=== PATIENT | female | born 1975 | race Caucasian/White ===

== ENCOUNTER 2020-09-24 08:16 | Emergency (ER) | payer MEDICAID ==
[~2020-09-24] VITALS: Ht 160 cm; Wt 121.1 kg
[2020-09-24 08:22] VITALS: BP 133/78
--- NOTE | 2020-09-24 08:22 | NUR ---
PT SENT TO LOBBY TO WAIT FOR AVAILABLE BED.
--- NOTE | 2020-09-24 09:30 | NUR ---
45/F BIB SELF C/O SOB X THIS AM. O2 SAT 97% RA.PT STATES HAS HX OF ASTHMA AND HAS NOT HAD MEDICATIONS. PT STATES SHE RAN OUT. HX ASTHMA, ECZEMA
--- NOTE | 2020-09-24 09:39 | NUR ---
COVID SWAB DONE, SENT TO LAB.
[2020-09-24 09:40] VITALS: BP 133/78
--- NOTE | 2020-09-24 09:40 | NUR ---
Patient discharged with v/s stable. Written and verbal after care instructions given and explained. Patient alert, oriented and verbalized understanding of instructions. Ambulatory with steady gait. All questions addressed prior to discharge. ID band removed. Patient advised to follow up with PMD. Rx of SYNALAR, ALBUTEROL& PREDNISONE given. Patient educated on indication of medication including possible reaction and side effects. Opportunity to ask questions provided and answered.
== END 2020-09-24 09:40 | disposition home or self-care (01) ==
LOC: MED 08:16
DX: J45.909 Unspecified asthma, uncomplicated (principal); L30.9 Dermatitis, unspecified; Z98.51 Tubal ligation status; Z20.828 Contact with and (suspected) exposure to other viral communicable diseases
CPT/HCPCS: 99283; U0003

== ENCOUNTER 2021-05-08 20:09 | Emergency (ER) | payer MEDICAID ==
[~2021-05-08] VITALS: Ht 160 cm; Wt 116.6 kg
[2021-05-08 20:28] VITALS: BP 120/84
--- NOTE | 2021-05-08 20:33 | NUR ---
visual acuity as follows; OD: 20/30 OS: 20/20 OU:20/20
--- NOTE | 2021-05-08 20:33 | NUR ---
triaged and waiting in lobby.
--- NOTE | 2021-05-08 21:27 | NUR ---
AMBULATED TO ER BED 9
[2021-05-08] MEDS ORDERED: TETRACAINE HCL/PF 0.5% OPTH 4 ML BTL OP ONE (21:35)
[2021-05-08] MEDS ORDERED: TOBR5SOL17 RIGHT EYE (21:38)
[2021-05-08] MEDS ORDERED: NAPH15SO OP (21:38)
[2021-05-08] MEDS ORDERED: ALBU0.0912 INH (21:45)
--- NOTE | 2021-05-08 21:50 | NUR ---
R eye pain/discharge/ blurred vision for 4 days. mild swelling noted upon assessment. hx of asthma nkda
--- NOTE | 2021-05-08 21:55 | NUR ---
Patient discharged with v/s stable. Written and verbal after care instructions given and explained. Patient alert, oriented and verbalized understanding of instructions. Ambulatory with steady gait. All questions addressed prior to discharge. ID band removed. Patient advised to follow up with PMD. Rx of naphcon-a, tobramycin eyedrops given. Patient educated on indication of medication including possible reaction and side effects. Opportunity to ask questions provided and answered.
[2021-05-08 21:56] VITALS: BP 120/84
== END 2021-05-08 21:55 | disposition home or self-care (01) ==
LOC: MED 20:09
DX: H00.011 Hordeolum externum right upper eyelid (principal); J45.909 Unspecified asthma, uncomplicated; Z79.899 Other long term (current) drug therapy
CPT/HCPCS: 99283

== ENCOUNTER 2022-05-22 15:58 | Emergency (ER) | payer MEDICAID ==
[~2022-05-22] VITALS: Ht 160 cm; Wt 99.8 kg
[~2022-05-22 15:58] MED LIST: ALBU0.0912 INH; NAPH15SO OP; TOBR5SOL17 RIGHT EYE
[2022-05-22 16:13] VITALS: BP 143/88
--- NOTE | 2022-05-22 16:45 | NUR ---
SELENA ORTA EXAMINING PT IN TRIAGE WITH FEMALE ELECTRICAL MAINTENANCE TECHNICIAN
[2022-05-22] MEDS ORDERED: IBUP-1842 PO (16:50)
[2022-05-22] MEDS ORDERED: CEPH-588 PO (16:50)
[2022-05-22] MEDS ORDERED: ALBU0.0912 INH (16:59)
--- NOTE | 2022-05-22 17:00 | NUR ---
46 Y/O FEMALE BIB SELF C/O OF PAIN AND , BURNING, ITCHING ON HER LABIA, PER PT SHE HAS A BUMP IN THE AREA, X3DAYS. TOOK MOTRIN FOR PAIN AND SWELLING. DENIES ANY VAGINAL BLEEDING OR DISCHARGE. DENIES ANY URINARY S/S NKA PMH: ASTHMA
[2022-05-22 17:11] VITALS: BP 143/88
--- NOTE | 2022-05-22 17:12 | NUR ---
Patient discharged with v/s stable. Written and verbal after care instructions given and explained. Patient alert, oriented and verbalized understanding of instructions. Ambulatory with steady gait. All questions addressed prior to discharge. ID band removed. Patient advised to follow up with PMD. Rx of albuterol, ibuprofen, cephalexin (sent) given. Patient educated on indication of medication including possible reaction and side effects. Opportunity to ask questions provided and answered.
== END 2022-05-22 17:12 | disposition home or self-care (01) ==
LOC: MED 15:58
DX: N76.4 Abscess of vulva (principal); J45.909 Unspecified asthma, uncomplicated; Z76.0 Encounter for issue of repeat prescription
CPT/HCPCS: 99283

== ENCOUNTER 2022-05-25 12:28 | Emergency (ER) | payer MEDICAID ==
[~2022-05-25] VITALS: Ht 162.6 cm; Wt 102.5 kg
[~2022-05-25 12:28] MED LIST changes: +CEPH-588 PO; +IBUP-1842 PO
[2022-05-25 12:46] VITALS: BP 174/94
--- NOTE | 2022-05-25 12:53 | NUR ---
PT AMB TO BED 2.
--- NOTE | 2022-05-25 12:54 | NUR ---
BIB SELF FOR RECHECK. SEEN HERE 05/22/22 FOR LEFT VULVAR ABSCESS. PMH: ASTHMA, TUBALIGATION
[2022-05-25] MEDS ORDERED: LIDOCAINE MPF 1% 10 MG/ML VIAL INJ ONE (13:35)
[2022-05-25] MEDS ORDERED: KETOROLAC 30 MG/ML VIAL IM ONE (13:35)
[2022-05-25 14:57] VITALS: BP 132/86
--- NOTE | 2022-05-25 14:57 | NUR ---
Patient discharged with v/s stable. Written and verbal after care instructions given and explained. Patient verbalized understanding. Ambulatory with steady gait. All questions addressed prior to discharge. Advised to follow up with PMD.
[2022-05-26] MEDS ORDERED: SULF-59 PO (13:33)
== END 2022-05-25 14:57 | disposition home or self-care (01) ==
LOC: MED 12:28
DX: N76.4 Abscess of vulva (principal); J45.909 Unspecified asthma, uncomplicated
CPT/HCPCS: 56405; 96372; 99284; J1885; J2001

== ENCOUNTER 2022-05-26 12:14 | Emergency (ER) | payer MEDICAID ==
[~2022-05-26] VITALS: Ht 160 cm; Wt 104.3 kg
[2022-05-26 12:23] VITALS: BP 131/88
--- NOTE | 2022-05-26 13:08 | NUR ---
AMBULATED TO BED 1
[2022-05-26] MEDS ORDERED: SULFAMETH/TRIMETH DS 800/160MG 1 TAB PO ONE (13:25)
[2022-05-26] MEDS ORDERED: KETOROLAC 30 MG/ML VIAL IM ONE (13:25)
[2022-05-26] MEDS ORDERED: SULF-59 PO (13:33)
--- NOTE | 2022-05-26 13:56 | NUR ---
Patient discharged with v/s stable. Written and verbal after care instructions given and explained. Patient alert, oriented and verbalized understanding of instructions. Ambulatory with steady gait. All questions addressed prior to discharge. ID band removed. Patient advised to follow up with PMD. Rx of bactrim ds given. Patient educated on indication of medication including possible reaction and side effects. Opportunity to ask questions provided and answered.
== END 2022-05-26 13:56 | disposition home or self-care (01) ==
LOC: MED 12:14
DX: N76.4 Abscess of vulva (principal); J45.909 Unspecified asthma, uncomplicated; Z79.899 Other long term (current) drug therapy
CPT/HCPCS: 96372; 99283; J1885

== ENCOUNTER 2022-07-01 18:15 | Emergency (ER) | payer MEDICAID ==
[~2022-07-01] VITALS: Ht 162.6 cm; Wt 98.7 kg
[~2022-07-01 18:15] MED LIST changes: +SULF-59 PO
[2022-07-01 18:39] VITALS: BP 145/73
--- NOTE | 2022-07-01 18:48 | NUR ---
PT AMB TO BED 9.
[2022-07-01] MEDS ORDERED: IBUPROFEN 800 MG TAB PO ONE (19:00)
--- NOTE | 2022-07-01 19:00 | NUR ---
ANICETO AT BEDSIDE
[2022-07-01] MEDS ORDERED: ALBU0.0912 INH (19:06)
[2022-07-01] MEDS ORDERED: SULF-58 PO (19:06)
--- NOTE | 2022-07-01 19:30 | NUR ---
PT WALKED IN C/O MULTIPLE COMPLAINTS, LLQ ABDOMINAL WALL ABCESS X 5 DAYS AND FLU LIKE SYMPTOMS. PT DENIES FEVERS, CHILLS, N/V/D/C. DENIES DRUG USE.
--- NOTE | 2022-07-01 20:04 | NUR ---
SOELISABETHA SWAB SENT TO LAB
[2022-07-01 20:21] VITALS: BP 145/73
== END 2022-07-01 20:20 | disposition home or self-care (01) ==
LOC: MED 18:15
DX: L03.311 Cellulitis of abdominal wall (principal); Z20.822 Contact with and (suspected) exposure to COVID-19; J06.9 Acute upper respiratory infection, unspecified; R03.0 Elevated blood-pressure reading, without diagnosis of hypertension; Z76.0 Encounter for issue of repeat prescription
CPT/HCPCS: 99283

== ENCOUNTER 2022-07-03 13:16 | Emergency (ER) | payer MEDICAID ==
[~2022-07-03] VITALS: Ht 167.6 cm; Wt 84.4 kg
[~2022-07-03 13:16] MED LIST changes: +SULF-58 PO
[2022-07-03 13:22] VITALS: BP 146/83
--- NOTE | 2022-07-03 13:30 | NUR ---
47 y/o female bib self from home, pt was seen here previously for left lower quadrant abd wound on 07/01/22, pt states prior to visit area has been hurting for 5 days. pt now presents to ed with c/o increased pain and states this morning area "popped". site appears to have redness, swelling and some discharge at the site. a&ox4, ambulates with steady gait. pain 10/10 at this time. pmh: asthma nka
[2022-07-03] MEDS ORDERED: KETOROLAC 30 MG/ML VIAL IM ONE (14:05)
[2022-07-03] MEDS ORDERED: cephALEXin 500 MG CAP PO ONE (14:05)
[2022-07-03] MEDS ORDERED: HYDROcodone/APAP 5/325 MG 1 TAB TAB PO ONE (14:05)
[2022-07-03] MEDS ORDERED: BACITRACIN OINT 500 UNITS/GM PKT TP ONE (14:10)
--- NOTE | 2022-07-03 14:15 | NUR ---
PT AMB TO BED 2.
--- NOTE | 2022-07-03 14:36 | NUR ---
PT MOVED TO ROOM 2. AMBULATED W/STEADY GAIT
[2022-07-03] MEDS ORDERED: IBUP-2213 PO (14:41)
[2022-07-03] MEDS ORDERED: CEPH-588 PO (14:41)
[2022-07-03] MEDS ORDERED: ACET-8386 PO (14:41)
--- NOTE | 2022-07-03 15:08 | NUR ---
NON ADHERENT APPLIED TO LOWER ABDOMEN.
[2022-07-03 15:34] VITALS: BP 134/80
--- NOTE | 2022-07-03 15:35 | NUR ---
Patient discharged with v/s stable. Written and verbal after care instructions given and explained. Patient alert, oriented and verbalized understanding of instructions. Ambulatory with steady gait. All questions addressed prior to discharge. ID band removed. Patient advised to follow up with PMD. Rx of MOTRIN, NORCO, KEFLEX given. Patient educated on indication of medication including possible reaction and side effects. Opportunity to ask questions provided and answered.
--- NOTE | 2022-07-03 15:35 | NUR ---
The patient's care was reviewed and supervised by ED Agency Nurse 9, RN, RN.
== END 2022-07-03 15:34 | disposition home or self-care (01) ==
LOC: MED 13:16
DX: L03.311 Cellulitis of abdominal wall (principal); J45.909 Unspecified asthma, uncomplicated; Z79.899 Other long term (current) drug therapy
CPT/HCPCS: 81025; 96372; 99284; J1885

== ENCOUNTER 2022-07-09 08:00 | Emergency (ER) | payer MEDICAID ==
[~2022-07-09 08:00] MED LIST changes: +ACET-8386 PO; +IBUP-2213 PO
--- NOTE | 2022-07-09 08:05 | NUR ---
pt lwbs at this time
--- NOTE | 2022-07-09 08:05 | NUR ---
PT STATES SHE NEEDED TO LEAVE AND WOULD COME BACK LATER TO BE SEEN.
== END 2022-07-09 08:05 | disposition left against medical advice (07) ==
LOC: MED 08:00
DX: T14.8XXA Other injury of unspecified body region, initial encounter (principal); Z53.21 Procedure and treatment not carried out due to patient leaving prior to being seen by health care provider; W57.XXXA Bitten or stung by nonvenomous insect and other nonvenomous arthropods, initial encounter; Y93.89 Activity, other specified; Y92.89 Other specified places as the place of occurrence of the external cause; Y99.8 Other external cause status

== ENCOUNTER 2022-08-23 15:41 | Emergency (ER) | payer MEDICAID ==
[~2022-08-23] VITALS: Ht 162.6 cm; Wt 103.9 kg
[2022-08-23 15:47] VITALS: BP 127/80
[2022-08-23] MEDS ORDERED: KETOROLAC 60 MG/2 ML VIAL IM ONE (16:25)
[2022-08-23] MEDS ORDERED: IBUP-2213 PO (16:30)
[2022-08-23] MEDS ORDERED: PRED20TA5 PO (16:30)
[2022-08-23 17:03] VITALS: BP 132/75
--- NOTE | 2022-08-23 17:06 | NUR ---
Patient discharged with v/s stable. Written and verbal after care instructions given and explained. Patient alert, oriented and verbalized understanding of instructions. Ambulatory with . All questions addressed prior to discharge. ID band removed. Patient advised to follow up with PMD. Rx of MOTRIN, PREDNISON given. Patient educated on indication of medication including possible reaction and side effects. Opportunity to ask questions provided and answered.
== END 2022-08-23 17:03 | disposition home or self-care (01) ==
LOC: MED 15:41
DX: J02.9 Acute pharyngitis, unspecified (principal); J45.909 Unspecified asthma, uncomplicated
CPT/HCPCS: 96372; 99283; J1885

== ENCOUNTER 2022-09-03 08:45 | Emergency (ER) | payer MEDICAID ==
[~2022-09-03] VITALS: Ht 172.7 cm; Wt 83.9 kg
[~2022-09-03 08:45] MED LIST changes: +PRED20TA5 PO
[2022-09-03 08:54] VITALS: BP 150/86
--- NOTE | 2022-09-03 09:46 | NUR ---
PATIENT AMBULATED TO BED 5.
--- NOTE | 2022-09-03 10:03 | NUR ---
47 y/o female bib self with c/o sore throat with SOB and cough x 1 week. Per patient was seen here 1 week ago and was informed she had a viral infection. Patient denies any fevers or chills. Patient has been using her inhaler to treat symptoms. Patient says there are sick people in her household. Patient has a hoarse voice. Current oxygen level at 97% on room air. Medical History: Asthma NKDA
--- NOTE | 2022-09-03 10:59 | NUR ---
Dr. Chapin evaluating patient at bedside.
[2022-09-03] MEDS ORDERED: ALBUTEROL HFA MDI 90 MCG/ACTUATION 8 GM INH ONE (11:05)
[2022-09-03] MEDS ORDERED: ALBU0.0912 IH (11:07)
[2022-09-03] MEDS ORDERED: PROM118S5 PO (11:07)
--- NOTE | 2022-09-03 11:57 | NUR ---
RT AT BEDSIDE
[2022-09-03 12:13] VITALS: BP 137/82
--- NOTE | 2022-09-03 12:13 | NUR ---
Patient discharged with v/s stable. Written and verbal after care instructions given. Patient alert, oriented and verbalized understanding of instructions. Ambulatory with steady gait. All questions addressed prior to discharge. ID band removed. Patient advised to follow up with PMD. Rx of Proventil and Promethazine-DM given. Opportunity to ask questions provided and answered.
--- NOTE | 2022-09-03 14:08 | NUR ---
The patient's care was reviewed and supervised by ED Agency Nurse 8, RN, RN.
--- NOTE | 2022-09-03 14:10 | NUR ---
The patient's care was reviewed and supervised by ED Agency Nurse 8, RN, RN.
== END 2022-09-03 12:13 | disposition home or self-care (01) ==
LOC: MED 08:45
DX: J45.909 Unspecified asthma, uncomplicated (principal); B34.9 Viral infection, unspecified; J04.0 Acute laryngitis
CPT/HCPCS: 94664; 99283; J3535

== ENCOUNTER 2022-09-21 10:01 | Emergency (ER) | payer MEDICAID ==
[~2022-09-21] VITALS: Ht 162.6 cm; Wt 107.0 kg
[~2022-09-21 10:01] MED LIST changes: +ALBU0.0912 IH; +PROM118S5 PO
[2022-09-21 10:05] VITALS: BP 127/81
--- NOTE | 2022-09-21 10:20 | NUR ---
Note undone in EDM - 09/21/22 at 1046 by MEDPMR PATIENT PRESENTS TO ED WITH EAR PAIN . PT STATES SHE "HAS BEEN FEELING PAIN IN HER INNER EAR AND WHEN MOUTH IS OPEN CANNOT HEAR" . DENIES N/V/ DIARRHEA PRESENT; SKIN IS PINK/WARM/DRY; AAOX4 WITH EVEN AND STEADY GAIT; LUNGS CLEAR BL; HR EVEN AND REGULAR; PT DENIES ANY FEVER, CP, AT THIS TIME, SOB AND COUGH PRESENT; PATIENT STATES PAIN OF 8/10 AT THIS TIME IN HER EAR, WHEN TALKING AND YAWNING, HIGH PRESSURE PAIN FOR 2 DAYS.; VSS; PATIENT POSITIONED FOR COMFORT; HOB ELEVATED; BEDRAILS UP X2; BED DOWN. ER MD MADE AWARE OF PT STATUS. H/S: ASTHMA, LARYNGITIS , ECZEMA, MEDS: ALBUTEROL INHALER ALLERGIES: NKDA NOTED BY ZOYA STUDENT NURSE
--- NOTE | 2022-09-21 10:20 | NUR ---
PATIENT PRESENTS TO ED WITH RIGHT EAR PAIN . PT STATES SHE "HAS BEEN FEELING PAIN IN HER INNER EAR AND WHEN MOUTH IS OPEN CANNOT HEAR" . DENIES N/V/ DIARRHEA PRESENT; SKIN IS PINK/WARM/DRY; AAOX4 WITH EVEN AND STEADY GAIT; LUNGS CLEAR BL; HR EVEN AND REGULAR; PT DENIES ANY FEVER, CP, AT THIS TIME, SOB AND COUGH PRESENT; PATIENT STATES PAIN OF 8/10 AT THIS TIME IN HER EAR, WHEN TALKING AND YAWNING, HIGH PRESSURE PAIN FOR 2 DAYS.; VSS; PATIENT POSITIONED FOR COMFORT; HOB ELEVATED; BEDRAILS UP X2; BED DOWN. ER MD MADE AWARE OF PT STATUS. H/S: ASTHMA, LARYNGITIS , ECZEMA, MEDS: ALBUTEROL INHALER ALLERGIES: NKDA
--- NOTE | 2022-09-21 10:36 | NUR ---
flu and franco swabbed at this time
[2022-09-21] MEDS ORDERED: NAPR-1704 PO (10:48)
[2022-09-21] MEDS ORDERED: CEPH-588 PO (10:48)
[2022-09-21 10:53] VITALS: BP 127/81
--- NOTE | 2022-09-21 10:53 | NUR ---
Patient discharged with v/s stable. Written and verbal after care instructions given and explained. Patient alert, oriented and verbalized understanding of instructions. Ambulatory with steady gait. All questions addressed prior to discharge. ID band removed. Patient advised to follow up with PMD. Rx of cephalexin, naproxen (sent) given. Patient educated on indication of medication including possible reaction and side effects. Opportunity to ask questions provided and answered.
== END 2022-09-21 10:53 | disposition home or self-care (01) ==
LOC: MED 10:01
DX: B34.9 Viral infection, unspecified (principal); H92.01 Otalgia, right ear; N76.2 Acute vulvitis; L03.116 Cellulitis of left lower limb; Z20.822 Contact with and (suspected) exposure to COVID-19; J45.909 Unspecified asthma, uncomplicated; Z98.890 Other specified postprocedural states; Z79.2 Long term (current) use of antibiotics; Z79.1 Long term (current) use of non-steroidal anti-inflammatories (NSAID); Z79.899 Other long term (current) drug therapy; Z79.891 Long term (current) use of opiate analgesic
CPT/HCPCS: 99283

== ENCOUNTER 2022-10-22 12:02 | Emergency (ER) | payer MEDICAID ==
[~2022-10-22] VITALS: Ht 160 cm; Wt 108.9 kg
[~2022-10-22 12:02] MED LIST changes: -ACET-8386 PO; +ACET-8905 PO; +NAPR-1704 PO
[2022-10-22 12:17] VITALS: BP 135/89
--- NOTE | 2022-10-22 12:30 | NUR ---
47 Y/O FEMALE BBIB SELF C/O LEFT HIP REDNESS AND SWELLING PT BELIEVES SHE HAS AN ABSCESS OR AN INGROWN HAIR. DENIES ANY RADIATION, DISCHARGE. TERRY PMH: ASTHMA
[2022-10-22] MEDS ORDERED: CEPH-588 PO (13:22)
[2022-10-22] MEDS ORDERED: ACET-2214 PO (13:22)
[2022-10-22] MEDS ORDERED: ALBU0.0912 IH (13:22)
--- NOTE | 2022-10-22 13:46 | NUR ---
Patient discharged with v/s stable. Written and verbal after care instructions ABOUT ASTHMA AND CELLULITIS given and explained. Patient alert, oriented and verbalized understanding of instructions. Ambulatory with steady gait. All questions addressed prior to discharge. ID band removed. Patient advised to follow up with PMD. Rx of TYLENOL, ALBUEROL AND KEFLEX given. Patient educated on indication of medication including possible reaction and side effects. Opportunity to ask questions provided and answered.
== END 2022-10-22 13:46 | disposition home or self-care (01) ==
LOC: MED 12:02
DX: L03.311 Cellulitis of abdominal wall (principal); J45.909 Unspecified asthma, uncomplicated; Z76.0 Encounter for issue of repeat prescription; Z79.899 Other long term (current) drug therapy
CPT/HCPCS: 99283

== ENCOUNTER 2022-12-02 15:33 | Emergency (ER) | payer MEDICAID ==
[~2022-12-02] VITALS: Ht 165.1 cm; Wt 114.8 kg
[~2022-12-02 15:33] MED LIST changes: +ACET-2214 PO
[2022-12-02 15:39] VITALS: BP 137/72
--- NOTE | 2022-12-02 16:00 | NUR ---
47/F WALKED IN C/O SORE THROAT AND B/L EAR PAIN ONSET 3 DAYS. DENIES FEVER. AAO4, AMBULATORY, VITALS STABLE. PMH: ASTHMA, ECZEMA NKA MED: DENIES
[2022-12-02] MEDS ORDERED: IBUPROFEN 600 MG TAB PO ONE (16:30)
[2022-12-02] MEDS ORDERED: IBUP-2213 PO (16:31)
[2022-12-02] MEDS ORDERED: AMOX500C25 PO (16:31)
== END 2022-12-02 17:00 | disposition home or self-care (01) ==
LOC: MED 15:33
DX: J04.0 Acute laryngitis (principal); H66.93 Otitis media, unspecified, bilateral; J45.909 Unspecified asthma, uncomplicated
CPT/HCPCS: 99283

== ENCOUNTER 2023-01-21 09:49 | Emergency (ER) | payer MEDICAID ==
[~2023-01-21] VITALS: Ht 167.6 cm; Wt 108.9 kg
[~2023-01-21 09:49] MED LIST changes: +AMOX500C25 PO
[2023-01-21 10:17] VITALS: BP 144/83
--- NOTE | 2023-01-21 10:29 | NUR ---
SELENA MORELAND AT BEDSIDE.
--- NOTE | 2023-01-21 10:34 | NUR ---
47 Y/O F BIB SELF PT C/O COUGH SOB AND SORE THROAT 10/10 ON AND OFF FOR MONTHS. PMH: ASTHMA
--- NOTE | 2023-01-21 10:56 | NUR ---
BRANDON AND INFLUENZA SWABED AND WALKED TO THE LAB.
[2023-01-21 10:57] LABS: BASOPHILS # (AUTO) 0.1 K/uL (0.00-0.22); BASOPHILS % (AUTO) 1.3 % (0.0-2.0); EOSINOPHILS # (AUTO) 0.1 K/uL (0-0.4); EOSINOPHILS % (AUTO) 2.1 % (0.0-4.0); HEMOGLOBIN 11.9 g/dL (12.0-16.0); LYMPHOCYTES # (AUTO) 1.5 K/uL (2.5-16.5); LYMPHOCYTES % (AUTO) 25.8 % (20.5-51.1); MEAN CORPUSCULAR HEMOGLOBIN 25 pg (27-31); MEAN CORPUSCULAR HGB CONC 32 g/dL (33-37); MEAN CORPUSCULAR VOLUME 78.6 fL (80-94); MONOCYTES # (AUTO) 0.6 K/uL (0.8-1.0); MONOCYTES % (AUTO) 10.3 % (1.7-9.3); NEUTROPHILS # (AUTO) 3.6 K/uL (1.8-7.7); NEUTROPHILS % (AUTO) 60.5 % (42.2-75.2); PLATELET COUNT (AUTO) 247 K/uL (140-450); RED CELL DISTRIBUTION WIDTH 17.2 % (11.6-13.7)
--- NOTE | 2023-01-21 11:15 | NUR ---
PT TO X-RAY VIA WHEELCHAIR.
[2023-01-21 11:25] LABS: ALBUMIN 3.5 g/dL (3.4-5.0); ANION GAP 13.6 (8-16); ASPARTATE AMINOTRANSFERASE 20 U/L (15-37); CARBON DIOXIDE 26.5 mmol/L (21-32); CHLORIDE 104 mmol/L (98-107); CREATININE 0.7 mg/dL (0.6-1.3); GFR ARICAN-AMERICAN 116 mL/min (>90); GLUCOSE 129 mg/dL (74-106); POTASSIUM 4.1 mmol/L (3.5-5.1); SODIUM SERUM 140 mmol/L (136-145); TOTAL BILIRUBIN 0.3 mg/dL (0.0-1.0); UREA NITROGEN, BLOOD 12 mg/dL (7-18)
--- NOTE | 2023-01-21 11:40 | NUR ---
PT TO CT VIA WHEELCHAIR.
[2023-01-21] MEDS ORDERED: ALBU0.0912 INH (14:35)
[2023-01-21] MEDS ORDERED: PRED20TA5 PO (14:36)
--- NOTE | 2023-01-21 14:43 | NUR ---
SELENA MORELAND AT BEDSIDE.
[2023-01-21 14:59] VITALS: BP 111/57
--- NOTE | 2023-01-21 15:01 | NUR ---
The patient's care was reviewed and supervised by Fly Goddard RN.
--- NOTE | 2023-01-21 15:01 | NUR ---
Patient discharged with v/s stable. Written and verbal after care instructions given and explained. Patient alert, oriented and verbalized understanding of instructions. Ambulatory with steady gait. All questions addressed prior to discharge. ID band removed. Patient advised to follow up with PMD. Rx of ALBUTEROL SULFATE, PREDNISONE given. Opportunity to ask questions provided and answered.
== END 2023-01-21 15:01 | disposition home or self-care (01) ==
LOC: MED 09:49
DX: R06.02 Shortness of breath (principal); R05.9 Cough, unspecified; J02.9 Acute pharyngitis, unspecified; R49.0 Dysphonia; R03.0 Elevated blood-pressure reading, without diagnosis of hypertension; G89.29 Other chronic pain; Z76.0 Encounter for issue of repeat prescription; Z20.822 Contact with and (suspected) exposure to COVID-19; J45.909 Unspecified asthma, uncomplicated; Z79.899 Other long term (current) drug therapy; Z79.2 Long term (current) use of antibiotics; Z79.1 Long term (current) use of non-steroidal anti-inflammatories (NSAID)
CPT/HCPCS: 36415; 70491; 71046; 80053; 81025; 83880; 84484; 85025; 86308; 87426; 87804; 93005; 99285; Q9967

== ENCOUNTER 2023-03-15 17:59 | Emergency (ER) | payer OTHER, MEDICAID ==
[~2023-03-15] VITALS: Ht 162.6 cm; Wt 120.2 kg
[~2023-03-15 17:59] MED LIST changes: -TOBR5SOL17 RIGHT EYE; +TOBR5SOL38 RIGHT EYE
[2023-03-15 18:19] VITALS: BP 138/85
[2023-03-15] MEDS ORDERED: ACETAMINOPHEN 325 MG TAB PO ONE (19:25)
== END 2023-03-15 21:06 | disposition home or self-care (01) ==
LOC: MED 17:59
DX: M25.512 Pain in left shoulder (principal); M25.562 Pain in left knee; R07.81 Pleurodynia; M54.2 Cervicalgia; R03.0 Elevated blood-pressure reading, without diagnosis of hypertension; J45.909 Unspecified asthma, uncomplicated; Z79.899 Other long term (current) drug therapy; V49.9XXA Car occupant (driver) (passenger) injured in unspecified traffic accident, initial encounter; Y93.89 Activity, other specified; Y92.89 Other specified places as the place of occurrence of the external cause; Y99.8 Other external cause status
CPT/HCPCS: 71101; 73562; 81025; 99284

== ENCOUNTER 2023-06-24 14:15 | Emergency (ER) | payer MEDICAID ==
[~2023-06-24] VITALS: Ht 160 cm; Wt 131.1 kg
[2023-06-24 14:33] VITALS: BP 129/77; PULSE 83; RESP 18; TEMP 97.7; O2SAT 98
[2023-06-24] MEDS ORDERED: ALBU0.0912 IH (15:17)
[2023-06-24] MEDS ORDERED: ALBU0.5S1 NEB (15:17)
[2023-06-24] MEDS ORDERED: PYR100 PO (15:17)
[2023-06-24] MEDS ORDERED: NITR100C7 PO (15:17)
[2023-06-24 15:36] VITALS: BP 129/77; PULSE 83; RESP 18; TEMP 97.7; O2SAT 98
== END 2023-06-24 15:36 | disposition home or self-care (01) ==
LOC: MED 14:15
DX: R30.0 Dysuria (principal); R03.0 Elevated blood-pressure reading, without diagnosis of hypertension; J45.909 Unspecified asthma, uncomplicated; Z76.0 Encounter for issue of repeat prescription; Z79.899 Other long term (current) drug therapy
CPT/HCPCS: 81002; 81025; 99283